=== PATIENT | male | born 1980 | race Caucasian/White ===

== ENCOUNTER 2017-10-08 10:09 | Emergency (ER) | payer OTHER ==
[2017-10-08] MEDS ORDERED: TORAdol 30 mg Injection IM ONE (10:22)
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
[2017-10-08] MEDS ORDERED: TORAdol 30 mg Injection ONE (10:29)
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
[2017-10-08 11:04] VITALS: BP 134/84; PULSE 84
[2017-10-08 11:07] VITALS: O2SAT 99
== END 2017-10-08 11:11 | disposition home or self-care (01) ==
LOC: ED 10:09
DX: S46.911A Strain of unspecified muscle, fascia and tendon at shoulder and upper arm level, right arm, initial encounter (principal); M25.511 Pain in right shoulder; Y04.0XXA Assault by unarmed brawl or fight, initial encounter
CPT/HCPCS: 73030; 96372; 99283; 99284; J1885